=== PATIENT | male | born 1965 ===

== ENCOUNTER → 2022-07-06 | Day surgery (SDC) | payer OTHER ==
[~2022-07-06] VITALS: Ht 175.2 cm; Wt 106.6 kg
[~2022-07-06] MED LIST: BACLOFEN20 M1 PO; DOXYCYCLINE HY100 M3 PO; EC NAPROSYN,NA500 MG PO; FLUOXETINE HCL60 MG PO; HEARTBURN RELIE20 MG PO; LIPITOR40 MG PO; LORAZEPAM1 MG PO; LOSARTAN POTAS100 M1 PO; NORVASC10 MG PO; PERCOCET 5-3251 EACH PO; PRILOSEC20 M1 PO; TEGRETOL200 MG PO; TRAMADOL HCL50 MG PO; VITAMIN D325 MCG PO; XARELTO10 MG PO; ZANAFLEX4 M1 PO
[2022-07-06 06:47] VITALS: BP 154/83
[2022-07-06 08:10] VITALS: BP 126/76
[2022-07-06 08:25] VITALS: BP 141/74
[2022-07-06 08:39] VITALS: BP 142/77
[2022-07-06 09:06] VITALS: BP 140/62
[2022-07-07 11:08] LABS: ACID FAST SPEC PROCESSING Tissue Grinding (.)
== END | disposition home or self-care (01) ==
LOC: SDC 06-24 08:00 → EDSEX 00:22 → SDC 00:22
PROVIDERS: Podiatrist Foot & Ankle Surgery; ATTEND Podiatrist Foot & Ankle Surgery
DX: S91.302A Unspecified open wound, left foot, initial encounter (principal); I10 Essential (primary) hypertension; K21.9 Gastro-esophageal reflux disease without esophagitis; F32.A Depression, unspecified; E78.00 Pure hypercholesterolemia, unspecified; F41.9 Anxiety disorder, unspecified; Z86.73 Personal history of transient ischemic attack (TIA), and cerebral infarction without residual deficits; Z87.891 Personal history of nicotine dependence; Z79.899 Other long term (current) drug therapy; X58.XXXA Exposure to other specified factors, initial encounter; Y93.89 Activity, other specified; Y92.89 Other specified places as the place of occurrence of the external cause; Y99.8 Other external cause status